=== PATIENT | male | born 1960 | race American Indian/Alaskan Native ===

== ENCOUNTER 2016-12-28 01:56 | Emergency (ER) | payer BC ==
[2016-12-28] MEDS ORDERED: MORPHINE IV ONE (02:36)
[2016-12-28] MEDS ORDERED: ZOFRAN IV ONE (02:36)
[2016-12-28] MEDS ORDERED: PROTONIX IV ONE (02:41)
--- NOTE | 2016-12-28 02:41 | Emergency Department Report ---
ED Chest Pain HPI - General Chief Complaint: Chest Pain Stated Complaint: CHEST PAIN Time Seen by Provider: 12/28/16 02:29 Source: patient, EMS Mode of arrival: Stretcher Limitations: No Limitations - History of Present Illness Initial Comments: 56-year-old male history of high blood pressure and GERD coming Today with all of a sudden substernal chest pain radiating to his neck described it as pressure heaviness in nature. Denied any shortness of breath no nausea no vomiting no fever MD Complaint: chest pain -: Sudden Onset: during rest Pain Location: substernal Pain Radiation: neck Severity scale (0 -10): 8 Quality: heaviness Consistency: constant - Related Data Home Medications Medication Instructions Recorded Confirmed Last Taken Lisinopril 12/28/16 Unknown Allergies Allergy/AdvReac Type Severity Reaction Status Date / Time No Known Allergies Allergy Unverified 12/28/16 02:12 Heart Score - HEART Score History: Moderately suspicious EKG: Non-specific Age: 45-65 Risk factors: 1-2 risk factors Troponin: < normal limit HEART Score: 4 - Critical Actions Critical Actions: 4-6 pts:12-16.6% risk of adverse cardiac event. Should be admitted ED Review of Systems ROS: Stated complaint: CHEST PAIN Other details as noted in HPI Comment: All other systems reviewed and negative Constitutional: denies: chills, fever Respiratory: denies: cough, shortness of breath Cardiovascular: chest pain. denies: palpitations, dyspnea on exertion Gastrointestinal: denies: abdominal pain, nausea, vomiting Musculoskeletal: denies: back pain Neurological: denies: headache, weakness, numbness ED Past Medical Hx - Past Medical History Previous Medical History?: Yes Hx Hypertension: Yes - Surgical History Past Surgical History?: No - Social History Smoking Status: Never Smoker Substance Use Type: None - Medications Home Medications: Home Medications Medication Instructions Recorded Confirmed Last Taken Type Lisinopril 12/28/16 Unknown History ED Physical Exam - General Limitations: No Limitations General appearance: alert, in no apparent distress - Head Head exam: Present: normocephalic - Eye Eye exam: Present: normal appearance - ENT ENT exam: Present: normal exam - Neck Neck exam: Present: normal inspection - Respiratory Respiratory exam: Present: normal lung sounds bilaterally. Absent: wheezes, rales, rhonchi - Cardiovascular Cardiovascular Exam: Present: regular rate, normal rhythm, normal heart sounds - GI/Abdominal GI/Abdominal exam: Present: soft. Absent: distended, tenderness, guarding, rebound, rigid, normal bowel sounds, mass, bruit, pulsatile mass - Back Exam Back exam: Present: normal inspection. Absent: tenderness, CVA tenderness (R), CVA tenderness (L) - Neurological Exam Neurological exam: Present: alert, oriented X3, CN II-XII intact - Skin Skin exam: Present: warm, intact, normal color ED Course Vital Signs 12/28/16 12/28/16 12/28/16 02:03 02:07 02:15 Temperature 98.0 F Pulse Rate 83 78 72 Respiratory 19 20 13 Rate Blood Pressure 135/92 135/92 Blood Pressure 135/92 [Right] O2 Sat by Pulse 98 99 99 Oximetry 12/28/16 12/28/16 12/28/16 02:30 02:35 02:45 Temperature Pulse Rate 72 75 Respiratory 20 20 18 Rate Blood Pressure 136/88 149/91 Blood Pressure [Right] O2 Sat by Pulse 97 100 Oximetry 12/28/16 12/28/16 12/28/16 02:47 03:00 03:15 Temperature Pulse Rate 71 70 Respiratory 20 16 17 Rate Blood Pressure 134/89 134/89 Blood Pressure [Right] O2 Sat by Pulse 99 97 96 Oximetry 12/28/16 12/28/16 12/28/16 03:30 03:45 04:00 Temperature Pulse Rate 79 71 70 Respiratory 17 18 18 Rate Blood Pressure 133/88 143/87 137/88 Blood Pressure [Right] O2 Sat by Pulse 96 95 94 Oximetry 12/28/16 04:15 Temperature Pulse Rate 77 Respiratory 16 Rate Blood Pressure 140/98 Blood Pressure [Right] O2 Sat by Pulse Oximetry - Reevaluation(s) Reevaluation #1: 12/28/16 04:27 Patient stated that he is feeling better. Discussed with Dr. Tahira Hernandez presented the patient to her she accepted the patient to her service. ED Medical Decision Making - Lab Data Result diagrams: 12/28/16 02:24 12/28/16 02:24 - EKG Data -: EKG Interpreted by Tn EKG shows normal: sinus rhythm Rate: normal - EKG Data Interpretation: no acute changes - Medical Decision Making Mr. Da Silva presented with atypical chest pain he does have risk factors including high blood pressure he will need to be admitted to the hospital to rule out acute MN. Critical care attestation.: If time is entered above; I have spent that time in minutes in the direct care of this critically ill patient, excluding procedure time. ED Disposition Clinical Impression: Chest pain Disposition: DC09 OP ADMIT IP TO THIS HOSP Is pt being admited?: Yes Does the pt Need Aspirin: No (patient already given aspirin by EMS) Condition: Stable Instructions: Chest Pain (ED) Referrals: PRIMARY CARE, [Primary Care Provider] - 3-5 Days
[2016-12-28 02:45] LABS: Basophils % (Auto) 0.6 % (0.0-1.8); Eosinophils % (Auto) 0.7 % (0.0-4.3); Hematocrit 40.1 % (35.5-45.6); Mean Corpuscular HGB Conc 35 % (32-34); Mean Corpuscular Hemoglobin 32 pg (28-32); Mean Corpuscular Volume 93 fl (84-94); Platelet Count 238 K/mm3 (140-440); Red Blood Count 4.34 M/mm3 (3.65-5.03); White Blood Count 6.1 K/mm3 (4.5-11.0)
[2016-12-28 03:06] LABS: Anion Gap 19 mmol/L; BUN/Creatinine Ratio 12.22; Blood Urea Nitrogen 11 mg/dL (9-20); Calcium 8.6 mg/dL (8.4-10.2); Carbon Dioxide 17 mmol/L (22-30); Chloride 105.3 mmol/L (98-107); Glucose 102 mg/dL (75-100); Potassium 3.5 mmol/L (3.6-5.0); Sodium 138 mmol/L (137-145)
[2016-12-28 05:34] VITALS: BP 133/82
--- NOTE | 2016-12-28 09:07 | XRay Report ---
Single view chest: History: Chest pain. Findings: Normal cardiomediastinal silhouette. Trachea is midline. No consolidation, pneumothorax or pleural effusion. Impression: No acute cardiopulmonary findings.
== END 2016-12-28 05:34 | disposition admitted as inpatient to this hospital (09) ==
LOC: ED 01:56
DX: R07.2 Precordial pain (principal); I10 Essential (primary) hypertension
CPT/HCPCS: 36415; 71010; 80048; 84484; 85025; 85379; 96374; 96375; 99285; C9113; J2270; J2405